=== PATIENT | male | born 1960 | race African-American/Black ===

== ENCOUNTER 2018-06-29 09:59 | Emergency (ER) | payer MEDICAID ==
[~2018-06-29] VITALS: Ht 170.2 cm; Wt 77.0 kg
[2018-06-29 10:13] VITALS: BP 153/110
[2018-06-29] MEDS ORDERED: CEPHALEXIN 250MG CAPSULE PO ONE (10:45)
== END 2018-06-29 11:38 | disposition home or self-care (01) ==
LOC: ER 09:59
DX: L03.116 Cellulitis of left lower limb (principal); I10 Essential (primary) hypertension; E11.9 Type 2 diabetes mellitus without complications; G62.9 Polyneuropathy, unspecified; F12.10 Cannabis abuse, uncomplicated; Z98.890 Other specified postprocedural states
CPT/HCPCS: 99283

== ENCOUNTER 2018-07-17 10:18 | Emergency (ER) | payer MEDICAID ==
[~2018-07-17] VITALS: Ht 170.2 cm; Wt 75.0 kg
[2018-07-17] MEDS ORDERED: ACETAMINOPHEN 325MG TABLET PO ONE (12:30)
[2018-07-17 13:43] LABS: BASOPHILS % 0.5 % (0.0-2.0); EOSINOPHILS % 0.7 % (0.0-5.0); HEMATOCRIT. 37.5 % (42.0-52.0); HEMOGLOBIN. 12.4 g/dL (14.0-18.0); LYMPHOCYTES % 18.3 % (20.0-50.0); MEAN CORPUSCULAR VOLUME 81.7 fL (80.0-94.0); MEAN PLATELET VOLUME 9.4 fl (7.4-10.4); MONOCYTES % 6.3 % (2.0-8.0); NEUTROPHILS % 74.2 % (40.0-76.0); PLATELET 228 x1000/uL (130-400); RED BLOOD CELL COUNT 4.59 mill/uL (4.7-6.1); RED CELL DISTRIBUTION WIDTH 14.1 % (11.6-14.6)
[2018-07-17 13:48] LABS: CHLORIDE 103 mEq/L (98-107)
[2018-07-17 14:38] VITALS: BP 151/89
== END 2018-07-17 14:42 | disposition home or self-care (01) ==
LOC: ER 10:18
DX: E11.621 Type 2 diabetes mellitus with foot ulcer (principal); I10 Essential (primary) hypertension; I25.810 Atherosclerosis of coronary artery bypass graft(s) without angina pectoris; F12.10 Cannabis abuse, uncomplicated
CPT/HCPCS: 36415; 99283

== ENCOUNTER 2020-12-02 06:20 | Emergency (ER) | payer MEDICAID ==
[~2020-12-02] VITALS: Ht 170.2 cm; Wt 75.0 kg
[2020-12-02] MEDS ORDERED: ONDANSETRON HCL 4MG/2ML INJ IV STA (06:51)
[2020-12-02] MEDS ORDERED: SODIUM CHLORIDE 0.9% 1,000 ML IV ONE ×2 (07:00→08:45)
[2020-12-02 07:55] LABS: BASOPHILS % 0.2 % (0.0-2.0); HEMATOCRIT. 48.4 % (42.0-52.0); HEMOGLOBIN. 15.8 g/dL (14.0-18.0); LYMPHOCYTES % 11.3 % (20.0-50.0); MEAN CORPUSCULAR HEMOGLOBIN 26.2 pg (28.0-32.0); MEAN PLATELET VOLUME 9.9 fl (7.4-10.4); MONOCYTES % 6.2 % (2.0-8.0); NEUTROPHILS % 82.3 % (40.0-76.0); PLATELET 198 x1000/uL (130-400); RED BLOOD CELL COUNT 6.05 mill/uL (4.7-6.1); RED CELL DISTRIBUTION WIDTH 14.6 % (11.6-14.6)
[2020-12-02 07:58] LABS: CHLORIDE 93 mEq/L (98-107)
[2020-12-02 08:11] LABS: BETA HYDROXYBUTYRATE 2.3 mMol/L (0.0-0.3)
[2020-12-02 08:28] LABS: PROTHROMBIN TIME 11.1 sec (9.6-11.0)
[2020-12-02 08:34] LABS: BG BASE EXCESS 1.9 mmol/L (-2.0-2.0); BG CARBOXYHEMOGLOBIN 0.4 % (0.5-1.5); BG DEOXYHEMOGLOBIN 5.4 % (0.0-5.0); BG FRACTION INSPIRED OXYGEN 21; BG HCO3 ACT 26.6 mmol/L (22.0-26.0); BG METHEMOGLOBIN 0.1 % (0.0-1.5); BG OXYGEN SATURATION 94.6 % (92.0-98.5); BG OXYHEMOGLOBIN 94.1 % (94.0-97.0); BG PO2 75.9 mmHg (75.0-100.0); BG SAMPLE SITE RIGHT BRACHIAL; BG TOTAL HEMOGLOBIN 16.8 g/dL (12.0-18.0); BG VENT MODE ROOM AIR
[2020-12-02] MEDS ORDERED: MORPHINE SULFATE 4 MG/ML CPJ (NOT FOR IM USE) IV STA (08:45)
[2020-12-02] MEDS ORDERED: METOCLOPRAMIDE HCL 10MG TABLET PO ONE (08:45)
[2020-12-02] MEDS ORDERED: ONDA4TAB5 PO (09:54)
[2020-12-02 10:25] VITALS: BP 165/90
== END 2020-12-02 10:27 | disposition home or self-care (01) ==
LOC: ER 06:20
DX: R11.2 Nausea with vomiting, unspecified (principal); E11.9 Type 2 diabetes mellitus without complications; I11.9 Hypertensive heart disease without heart failure; I25.10 Atherosclerotic heart disease of native coronary artery without angina pectoris; Z95.1 Presence of aortocoronary bypass graft
CPT/HCPCS: 36415; 36600; 80053; 82010; 82375; 82805; 83690; 85025; 85610; 96361; 96374; 96375; 99285; J2270; J2405; J7030; J8597

== ENCOUNTER 2021-06-16 09:18 | Inpatient (IN) | payer MEDICAID, OTHER ==
[~2021-06-16] VITALS: Ht 175.3 cm; Wt 81.4 kg
[~2021-06-16 09:18] MED LIST: ONDA4TAB5 PO
[2021-06-16] MEDS ORDERED: LABETALOL 5MG/ML SYR 20 MG/4 ML SYRINGE IV ONE (10:45)
[2021-06-16] MEDS ORDERED: IOHEXOL-350 100 ML BOTTLE ONE (10:50)
[2021-06-16] MEDS ORDERED: ASPIRIN 325MG EC TABLET PO ONE (11:00)
[2021-06-16 11:26] LABS: BASOPHILS % 0.3 % (0.0-2.0); EOSINOPHILS % 2.2 % (0.0-5.0); HEMATOCRIT. 40.9 % (42.0-52.0); HEMOGLOBIN. 13.2 g/dL (14.0-18.0); LYMPHOCYTES % 25.8 % (20.0-50.0); MEAN CORPUSCULAR VOLUME 83.4 fL (80.0-94.0); MEAN PLATELET VOLUME 10.1 fl (7.4-10.4); MONOCYTES % 8.5 % (2.0-8.0); NEUTROPHILS % 63.2 % (40.0-76.0); PLATELET 153 x1000/uL (130-400); RED CELL DISTRIBUTION WIDTH 14.3 % (11.6-14.6)
[2021-06-16 11:32] LABS: CHLORIDE 109 mEq/L (98-107)
[2021-06-16 11:36] LABS: PROTHROMBIN TIME 10.9 sec (9.6-11.0)
[2021-06-16 11:37] LABS: ETHANOL BLOOD < 10 mg/dL
[2021-06-16 11:40] LABS: LDL CHOLESTEROL 90 mg/dL (5-100)
[2021-06-16 11:43] LABS: CLARITY URINE CLEAR (CLEAR); COLOR URINE YELLOW (YELLOW); KETONES URINE NEGATIVE (NEGATIVE); LEUKOCYTE ESTERASE URINE NEGATIVE (NEGATIVE); NITRITE URINE NEGATIVE (NEGATIVE); OCCULT BLOOD URINE NEGATIVE (NEGATIVE); PROTEIN URINE 1+ (NEGATIVE); SPECIFIC GRAVITY URINE 1.039 (1.005-1.030); UROBILINOGEN URINE 0.2 E.U./dL (0.2-1.0)
[2021-06-16 11:53] LABS: *AMPHETAMINES SCREEN URINE NEGATIVE (NEGATIVE)
[2021-06-16 11:54] LABS: *BARBITURATES SCREEN URINE NEGATIVE (NEGATIVE); *BENZODIAZEPINES SCREEN URINE NEGATIVE (NEGATIVE); *COCAINE SCREEN URINE NEGATIVE (NEGATIVE); METHADONE URINE SCREEN NEGATIVE (NEGATIVE); OPIATES URINE SCREEN NEGATIVE (NEGATIVE)
[2021-06-16 11:55] LABS: PHENCYCLIDINE URINE SCREEN NEGATIVE (NEGATIVE)
[2021-06-16 11:56] LABS: CANNABINOID URINE SCREEN PRESUMTIVE POSITIVE (NEGATIVE)
[2021-06-16] MEDS ORDERED: ONDANSETRON HCL 4MG/2ML INJ IV PRN (13:30)
[2021-06-16] MEDS ORDERED: DIPHENHYDRAMINE 50MG/ML VIAL IV PRN (13:30)
[2021-06-16] MEDS ORDERED: IPRATROPIUM/ALBUTEROL 0.5-3(2.5)MG/3ML NEB HHN PRN (13:30)
[2021-06-16] MEDS ORDERED: ACETAMINOPHEN 325MG TABLET PO PRN (13:30)
[2021-06-16] MEDS: CLONIDINE 0.1MG TABLET PO PRN (13:49)
[2021-06-16] MEDS: SODIUM CHLORIDE 0.9% 1,000 ML IV SCH (14:13)
[2021-06-16] MEDS: LOSARTAN POTASSIUM 100 MG TABLET PO SCH (14:29)
[2021-06-16] MEDS: CLOPIDOGREL 75MG TABLET PO SCH (15:02)
[2021-06-16 16:00] VITALS: BP 149/95
[2021-06-16] MEDS ORDERED: INSLIS SUBCUT (17:07)
[2021-06-16] MEDS ORDERED: CLOP-31 PO (17:07)
[2021-06-16] MEDS ORDERED: INSU100I28 SQ (17:07)
[2021-06-16] MEDS ORDERED: ASPI-1497 PO (17:07)
[2021-06-16] MEDS ORDERED: DEXTROSE 50% WATER 50ML SYRINGE IV PRN (17:15)
[2021-06-16] MEDS: INSULIN LISPRO 100 UNITS/ML SUBCUT SCH ×2 (18:07→22:12)
[2021-06-16] MEDS: BLOOD SUGAR DIAGNOSTIC STRIP TEST SCH ×2 (18:07→21:31)
[2021-06-16 20:00] VITALS: BP 150/83
[2021-06-16 21:51] LABS: T4 FREE 1.06 ng/dL (0.76-1.46)
[2021-06-16 22:01] LABS: FOLIC ACID (FOLATE) SERUM 11.6 ng/mL (>5.38)
[2021-06-16 23:57] VITALS: BP 143/89
[2021-06-17] MEDS: SODIUM CHLORIDE 0.9% 1,000 ML IV SCH ×2 (02:50→16:51)
[2021-06-17 04:00] VITALS: BP 155/93
[2021-06-17] MEDS: BLOOD SUGAR DIAGNOSTIC STRIP TEST SCH ×4 (06:55→21:05)
[2021-06-17 07:20] LABS: BASOPHILS % 0.4 % (0.0-2.0); HEMATOCRIT. 38.7 % (42.0-52.0); HEMOGLOBIN. 12.6 g/dL (14.0-18.0); LYMPHOCYTES % 31.5 % (20.0-50.0); MEAN CORPUSCULAR VOLUME 82.8 fL (80.0-94.0); MEAN PLATELET VOLUME 10.4 fl (7.4-10.4); MONOCYTES % 11.4 % (2.0-8.0); NEUTROPHILS % 53.7 % (40.0-76.0); PLATELET 148 x1000/uL (130-400); RED BLOOD CELL COUNT 4.67 mill/uL (4.7-6.1); RED CELL DISTRIBUTION WIDTH 14.6 % (11.6-14.6)
[2021-06-17 07:26] LABS: CHLORIDE 109 mEq/L (98-107)
[2021-06-17 07:35] LABS: LDL CHOLESTEROL 91 mg/dL (5-100)
[2021-06-17 07:36] LABS: HDL CHOLESTEROL 28 mg/dL (40-59)
[2021-06-17 08:00] VITALS: BP 172/88
[2021-06-17] MEDS: CLOPIDOGREL 75MG TABLET PO SCH (08:05)
[2021-06-17] MEDS: LOSARTAN POTASSIUM 100 MG TABLET PO SCH (08:05)
[2021-06-17] MEDS: INSULIN LISPRO 100 UNITS/ML SUBCUT SCH ×4 (08:12→21:00)
[2021-06-17] MEDS: CLONIDINE 0.1MG TABLET PO PRN ×3 (10:07→21:12)
[2021-06-17 12:00] VITALS: BP 165/101
[2021-06-17 16:00] VITALS: BP 151/93
[2021-06-17 20:00] VITALS: BP 173/88
[2021-06-18] VITALS (47 sets, daily range): BP systolic 119–206; BP diastolic 69–129
[2021-06-18] MEDS: SODIUM CHLORIDE 0.9% 1,000 ML IV SCH ×2 (05:33→18:17)
[2021-06-18] MEDS: BLOOD SUGAR DIAGNOSTIC STRIP TEST SCH ×4 (06:28→20:58)
[2021-06-18] MEDS ORDERED: HEPARIN SODIUM 1,000 UNIT/1ML VIAL IV ONE (06:52)
[2021-06-18] MEDS ORDERED: LIDOCAINE HCL 1% 30ML VIAL (10MG/ML) ONE (06:52)
[2021-06-18] MEDS ORDERED: THROMBIN (BOVINE) 5000 UNITS/VIAL TOP ONE (06:52)
[2021-06-18] MEDS ORDERED: BACITRACIN 15GM TUBE TOP ONE (06:52)
[2021-06-18] MEDS ORDERED: BUPIVACAINE HCL/PF 0.5% (5MG/ML) 10ML ONE (06:53)
[2021-06-18] MEDS ORDERED: POLYMYXIN B SULFATE 500000 UNITS/VIAL ONE ×2 (06:53→08:00)
[2021-06-18 07:01] LABS: BASOPHILS % 0.3 % (0.0-2.0); EOSINOPHILS % 2.8 % (0.0-5.0); HEMATOCRIT. 38.5 % (42.0-52.0); HEMOGLOBIN. 12.6 g/dL (14.0-18.0); LYMPHOCYTES % 32.7 % (20.0-50.0); MEAN CORPUSCULAR HEMOGLOBIN 26.9 pg (28.0-32.0); MEAN CORPUSCULAR VOLUME 82.2 fL (80.0-94.0); MONOCYTES % 12.2 % (2.0-8.0); PLATELET 141 x1000/uL (130-400); RED BLOOD CELL COUNT 4.68 mill/uL (4.7-6.1); RED CELL DISTRIBUTION WIDTH 14.4 % (11.6-14.6)
[2021-06-18 07:14] LABS: PHOSPHORUS 3.1 mg/dL (2.5-4.9)
[2021-06-18] MEDS: INSULIN LISPRO 100 UNITS/ML SUBCUT SCH ×4 (07:34→20:58)
[2021-06-18] MEDS ORDERED: MORPHINE SULFATE 4 MG/ML CPJ (NOT FOR IM USE) IV PRN (08:00)
[2021-06-18] MEDS ORDERED: NICARDIPINE 40MG/200ML PREMIX 200 ML IV PRN (08:00)
[2021-06-18] MEDS: LOSARTAN POTASSIUM 100 MG TABLET PO SCH (08:13)
[2021-06-18] MEDS ORDERED: FENTANYL CITRATE/PF 50MCG/ML 2ML VIAL ONE ×2 (08:13→09:47)
[2021-06-18] MEDS: CLOPIDOGREL 75MG TABLET PO SCH (08:13)
[2021-06-18] MEDS ORDERED: ROCURONIUM BROMIDE 10MG/ML VIAL 5ML IV ONE (08:13)
[2021-06-18] MEDS ORDERED: NEOSTIGMINE METHYLSULFATE 1MG/ML 10 ML VIAL ONE (08:14)
[2021-06-18] MEDS ORDERED: MIDAZOLAM HCL 2 MG/2 ML VIAL ONE ×2 (08:14→09:49)
[2021-06-18] MEDS ORDERED: GLYCOPYRROLATE 0.2 MG/ML 2ML VIAL ONE ×2 (08:14→09:03)
[2021-06-18] MEDS ORDERED: PROPOFOL 200MG/20ML VIAL IV ONE (08:14)
[2021-06-18] MEDS ORDERED: NICARDIPINE 50 MG in SODIUM CHLORIDE 0.9% 250 ML IV PRN (08:30)
[2021-06-18] MEDS ORDERED: NALOXONE HCL 0.4MG/ML VIAL IV PRN (08:45)
[2021-06-18] MEDS ORDERED: DEXAMETHASONE 4MG/ML 1ML VIAL ONE (08:56)
[2021-06-18] MEDS ORDERED: ONDANSETRON HCL 4MG/2ML INJ ONE (08:56)
[2021-06-18] MEDS ORDERED: ONDANSETRON HCL 4MG/2ML INJ IV PRN (09:00)
[2021-06-18] MEDS ORDERED: HYDROMORPHONE HCL/PF 2MG/ML CPJ IV PRN (09:00)
[2021-06-18] MEDS ORDERED: MEPERIDINE HCL/PF 25MG/ML CPJ IV PRN (09:00)
[2021-06-18] MEDS ORDERED: LABETALOL 5MG/ML SYR 20 MG/4 ML SYRINGE IV PRN (09:00)
[2021-06-18] MEDS: NITROPRUSSIDE 100 MG in DEXT 5% WATER 246 ML IV NR (10:54)
[2021-06-18] MEDS: ATORVASTATIN CALCIUM 20MG TABLET PO SCH (20:56)
[2021-06-18] MEDS: CLONIDINE 0.1MG TABLET PO PRN (20:57)
[2021-06-19] VITALS (68 sets, daily range): BP systolic 104–209; BP diastolic 24–137
[2021-06-19] MEDS: CLONIDINE 0.1MG TABLET PO PRN (05:40)
[2021-06-19 06:38] LABS: BASOPHILS % 0.1 % (0.0-2.0); EOSINOPHILS % 0.1 % (0.0-5.0); HEMATOCRIT. 34.7 % (42.0-52.0); HEMOGLOBIN. 11.4 g/dL (14.0-18.0); LYMPHOCYTES % 17.1 % (20.0-50.0); MEAN CORPUSCULAR VOLUME 82.3 fL (80.0-94.0); MEAN PLATELET VOLUME 10.1 fl (7.4-10.4); MONOCYTES % 11.1 % (2.0-8.0); NEUTROPHILS % 71.6 % (40.0-76.0); PLATELET 145 x1000/uL (130-400); RED BLOOD CELL COUNT 4.22 mill/uL (4.7-6.1); RED CELL DISTRIBUTION WIDTH 14.7 % (11.6-14.6)
[2021-06-19 06:49] LABS: PHOSPHORUS 3.6 mg/dL (2.5-4.9)
[2021-06-19] MEDS: BLOOD SUGAR DIAGNOSTIC STRIP TEST SCH ×4 (07:59→21:12)
[2021-06-19] MEDS: CLOPIDOGREL 75MG TABLET PO SCH (09:18)
[2021-06-19] MEDS: SODIUM CHLORIDE 0.9% 1,000 ML IV SCH (09:18)
[2021-06-19] MEDS: LOSARTAN POTASSIUM 100 MG TABLET PO SCH (09:18)
[2021-06-19] MEDS: INSULIN LISPRO 100 UNITS/ML SUBCUT SCH ×4 (09:43→21:23)
[2021-06-19] MEDS: CLONIDINE 0.1MG TABLET PO SCH ×2 (13:13→21:23)
[2021-06-19] MEDS: HYDRALAZINE 20MG/ML VIAL IV PRN (14:59)
[2021-06-19] MEDS: NITROPRUSSIDE 100 MG in DEXT 5% WATER 246 ML IV NR (15:11)
[2021-06-19] MEDS: ATORVASTATIN CALCIUM 20MG TABLET PO SCH (21:23)
[2021-06-19] MEDS: INSULIN GLARGINE UD 100 UNITS/ML SYR SUBCUT SCH (21:24)
[2021-06-20] VITALS (32 sets, daily range): BP systolic 125–197; BP diastolic 56–132
[2021-06-20] MEDS: HYDRALAZINE 20MG/ML VIAL IV PRN ×3 (01:11→13:08)
[2021-06-20] MEDS: SODIUM CHLORIDE 0.9% 1,000 ML IV SCH ×2 (02:21→21:45)
[2021-06-20] MEDS: CLONIDINE 0.1MG TABLET PO SCH ×3 (05:36→21:45)
[2021-06-20 06:02] LABS: BASOPHILS % 0.1 % (0.0-2.0); EOSINOPHILS % 1.2 % (0.0-5.0); HEMATOCRIT. 37.3 % (42.0-52.0); HEMOGLOBIN. 12.1 g/dL (14.0-18.0); LYMPHOCYTES % 19.3 % (20.0-50.0); MEAN CORPUSCULAR HEMOGLOBIN 26.9 pg (28.0-32.0); MEAN CORPUSCULAR VOLUME 82.7 fL (80.0-94.0); MEAN PLATELET VOLUME 10.4 fl (7.4-10.4); MONOCYTES % 10.6 % (2.0-8.0); NEUTROPHILS % 68.8 % (40.0-76.0); PLATELET 154 x1000/uL (130-400); RED CELL DISTRIBUTION WIDTH 14.9 % (11.6-14.6)
[2021-06-20 06:25] LABS: PHOSPHORUS 2.9 mg/dL (2.5-4.9)
[2021-06-20] MEDS: BLOOD SUGAR DIAGNOSTIC STRIP TEST SCH ×4 (08:31→21:45)
[2021-06-20] MEDS: CLOPIDOGREL 75MG TABLET PO SCH (08:52)
[2021-06-20] MEDS: LOSARTAN POTASSIUM 100 MG TABLET PO SCH (08:52)
[2021-06-20] MEDS: INSULIN LISPRO 100 UNITS/ML SUBCUT SCH ×4 (08:54→21:47)
[2021-06-20] MEDS: ATORVASTATIN CALCIUM 20MG TABLET PO SCH (21:48)
[2021-06-20] MEDS: INSULIN GLARGINE UD 100 UNITS/ML SYR SUBCUT SCH (21:48)
[2021-06-21 02:30] VITALS: BP 183/100
[2021-06-21] MEDS: HYDRALAZINE 20MG/ML VIAL IV PRN (02:39)
[2021-06-21 05:54] VITALS: BP 165/88
[2021-06-21 06:24] LABS: BASOPHILS % 0.4 % (0.0-2.0); EOSINOPHILS % 1.4 % (0.0-5.0); HEMATOCRIT. 39.1 % (42.0-52.0); HEMOGLOBIN. 12.8 g/dL (14.0-18.0); MEAN CORPUSCULAR HEMOGLOBIN 27.1 pg (28.0-32.0); MEAN CORPUSCULAR VOLUME 82.8 fL (80.0-94.0); MEAN PLATELET VOLUME 11.1 fl (7.4-10.4); MONOCYTES % 10.3 % (2.0-8.0); NEUTROPHILS % 68.9 % (40.0-76.0); PLATELET 173 x1000/uL (130-400); RED BLOOD CELL COUNT 4.72 mill/uL (4.7-6.1); RED CELL DISTRIBUTION WIDTH 14.5 % (11.6-14.6)
[2021-06-21 06:43] LABS: PHOSPHORUS 3.2 mg/dL (2.5-4.9)
[2021-06-21] MEDS: BLOOD SUGAR DIAGNOSTIC STRIP TEST SCH ×4 (06:48→21:00)
[2021-06-21] MEDS: CLONIDINE 0.1MG TABLET PO SCH (06:48)
[2021-06-21] MEDS: INSULIN LISPRO 100 UNITS/ML SUBCUT SCH ×4 (07:50→21:14)
[2021-06-21 08:00] VITALS: BP 144/73
[2021-06-21] MEDS: CLOPIDOGREL 75MG TABLET PO SCH (08:24)
[2021-06-21] MEDS: LOSARTAN POTASSIUM 100 MG TABLET PO SCH (08:24)
[2021-06-21 12:00] VITALS: BP 117/88
[2021-06-21] MEDS: CLONIDINE 0.2MG TABLET PO SCH ×2 (13:12→21:12)
[2021-06-21 16:02] VITALS: BP 157/77
[2021-06-21] MEDS ORDERED: LOPERAMIDE HCL 2MG CAPSULE PO PRN (19:30)
[2021-06-21 20:00] VITALS: BP 166/85
[2021-06-21] MEDS: ATORVASTATIN CALCIUM 20MG TABLET PO SCH (21:12)
[2021-06-21] MEDS: PSYLLIUM SEED PACKET PO SCH (21:13)
[2021-06-21] MEDS: INSULIN GLARGINE UD 100 UNITS/ML SYR SUBCUT SCH (21:14)
[2021-06-22] VITALS (7 sets, daily range): BP systolic 147–191; BP diastolic 68–96
[2021-06-22] MEDS: SODIUM CHLORIDE 0.9% 1,000 ML IV SCH (02:05)
[2021-06-22] MEDS: HYDRALAZINE 20MG/ML VIAL IV PRN ×2 (02:05→17:17)
[2021-06-22] MEDS: BLOOD SUGAR DIAGNOSTIC STRIP TEST SCH ×3 (05:53→17:21)
[2021-06-22] MEDS: CLONIDINE 0.2MG TABLET PO SCH ×2 (06:08→13:07)
[2021-06-22 07:54] LABS: PHOSPHORUS 3.4 mg/dL (2.5-4.9)
[2021-06-22] MEDS: CLOPIDOGREL 75MG TABLET PO SCH (08:52)
[2021-06-22] MEDS: LOSARTAN POTASSIUM 100 MG TABLET PO SCH (08:52)
[2021-06-22] MEDS: INSULIN LISPRO 100 UNITS/ML SUBCUT SCH ×3 (08:53→17:27)
[2021-06-22] MEDS: PSYLLIUM SEED PACKET PO SCH ×3 (08:59→17:00)
[2021-06-22 10:45] LABS: BASOPHILS % 0.5 % (0.0-2.0); EOSINOPHILS % 1.7 % (0.0-5.0); HEMATOCRIT. 35.1 % (42.0-52.0); HEMOGLOBIN. 11.5 g/dL (14.0-18.0); LYMPHOCYTES % 20.5 % (20.0-50.0); MEAN CORPUSCULAR HEMOGLOBIN 27.2 pg (28.0-32.0); MEAN CORPUSCULAR VOLUME 83.2 fL (80.0-94.0); MEAN PLATELET VOLUME 10.3 fl (7.4-10.4); MONOCYTES % 9.3 % (2.0-8.0); PLATELET 157 x1000/uL (130-400); RED BLOOD CELL COUNT 4.22 mill/uL (4.7-6.1); RED CELL DISTRIBUTION WIDTH 14.4 % (11.6-14.6)
[2021-06-22] MEDS ORDERED: LANTUSUD SUBCUT (12:37)
[2021-06-22] MEDS ORDERED: CLON0.2T PO (12:37)
[2021-06-22] MEDS ORDERED: ATOR20TA PO (12:37)
[2021-06-22] MEDS ORDERED: LOSA100T3 PO (12:37)
[2021-06-22] MEDS ORDERED: INSULIN GLARGINE UD 100 UNITS/ML SYR SUBCUT SCH (22:00)
== END 2021-06-22 22:15 | DRG 24 ==
LOC: ER 09:29 → EDBEDREQTM 09:55 → EDBEDREQSVC 09:55 → EDBEDREQ 09:55 → 6WST 10:47 → EDBEDREQTM 10:48 → EDBEDREQ 10:48 → ENRESERV 13:00 → CVICU 06-18 10:20 → 6WST 06-20 20:00
PROVIDERS: ADMIT Internal Medicine; ATTEND Internal Medicine
PROC: 03CL0ZZ Extirpation of Matter from Left Internal Carotid Artery, Open Approach (ICD-10-PCS; principal; 2021-06-18)
DX: I63.133 Cerebral infarction due to embolism of bilateral carotid arteries (principal); N17.9 Acute kidney failure, unspecified; G81.91 Hemiplegia, unspecified affecting right dominant side; I16.0 Hypertensive urgency; G81.94 Hemiplegia, unspecified affecting left nondominant side; N18.30 Chronic kidney disease, stage 3 unspecified; I12.9 Hypertensive chronic kidney disease with stage 1 through stage 4 chronic kidney disease, or unspecified chronic kidney disease; E78.5 Hyperlipidemia, unspecified; E11.22 Type 2 diabetes mellitus with diabetic chronic kidney disease; R53.81 Other malaise; Z20.822 Contact with and (suspected) exposure to COVID-19; R47.1 Dysarthria and anarthria; I25.10 Atherosclerotic heart disease of native coronary artery without angina pectoris; F12.90 Cannabis use, unspecified, uncomplicated; R47.01 Aphasia; Z79.02 Long term (current) use of antithrombotics/antiplatelets; Z79.4 Long term (current) use of insulin; Z82.49 Family history of ischemic heart disease and other diseases of the circulatory system; Z83.3 Family history of diabetes mellitus; Z95.1 Presence of aortocoronary bypass graft
CPT/HCPCS: 36415; 70496; 70498; 70551; 71045; 76770; 80048; 80053; 80061; 80305; 80320; 81003; 82550; 82607; 82746; 82962; 83036; 83721; 83735; 84100; 84439; 84443; 84481; 84484; 85025; 86850; 86900; 86920; 87426; 88304; 88311; 92523; 92610; 93005; 93306; 93880; 93970; 97162; 97166; 99291; J0360; J1100; J1644; J1815; J2250; J2405; J2704; J2710; J3010; J3490; J7060; Q9967; G0480

== ENCOUNTER 2021-12-23 17:11 | Emergency (ER) | payer MEDICAID, OTHER ==
[~2021-12-23] VITALS: Ht 175.3 cm; Wt 82.0 kg
[~2021-12-23 17:11] MED LIST changes: +ATOR20TA PO; +CLON0.2T PO; +CLOP-31 PO; +LANTUSUD SUBCUT; +LOSA100T3 PO
[2021-12-23] MEDS ORDERED: AZITHROMYCIN 500MG/250ML 250 ML IV ONE (17:45)
[2021-12-23] MEDS ORDERED: SODIUM CHLORIDE 0.9% 1000ML BAG (SEPSIS BOLUS) IV ONE (17:45)
[2021-12-23] MEDS ORDERED: CEFTRIAXONE 1 G PREMIX 50 ML IV ONE (17:45)
[2021-12-23 17:53] VITALS: BP 116/59
== END 2021-12-23 18:50 | disposition left against medical advice (07) ==
LOC: ER 17:11 → CANBEDREQ 20:51
DX: R41.82 Altered mental status, unspecified (principal); R55 Syncope and collapse; I11.0 Hypertensive heart disease with heart failure; I50.9 Heart failure, unspecified; E11.9 Type 2 diabetes mellitus without complications; Z79.4 Long term (current) use of insulin; Z95.1 Presence of aortocoronary bypass graft; Z91.19 Patient's noncompliance with other medical treatment and regimen
CPT/HCPCS: 93005; 99283; J7030; J0456

== ENCOUNTER 2022-06-11 21:38 | Emergency (ER) | payer MEDICAID, OTHER ==
[~2022-06-11] VITALS: Ht 175.3 cm; Wt 79.0 kg
[2022-06-11 21:45] VITALS: BP 164/100
== END 2022-06-11 22:35 | disposition left against medical advice (07) ==
LOC: ER 21:38
DX: Z53.21 Procedure and treatment not carried out due to patient leaving prior to being seen by health care provider (principal); I11.0 Hypertensive heart disease with heart failure; I50.9 Heart failure, unspecified; Z86.73 Personal history of transient ischemic attack (TIA), and cerebral infarction without residual deficits